=== PATIENT | female | born 1980 | race Caucasian/White ===

== ENCOUNTER 2018-02-25 16:10 | Day surgery (SDC) | payer BC ==
[~2018-02-25 16:10] MED LIST: Ketorolac Tromethamine 30 MG/ML VIAL ONE; Lidocaine 1% PF 5 ML VIAL ONE; Ondansetron HCl/PF 4 MG/2 ML Vial ONE; PROPOFOL 200 MG/20 ML VIAL ONE; Succinylcholine Chloride 20 MG/ML 10 ml SYRINGE FS ONE
[2018-02-25] MEDS ORDERED: Fentanyl 100 MCG/2 ML VIAL ONE (17:14)
[2018-02-25] MEDS ORDERED: Midazolam HCl 2 mg/2 ml Vial ONE (17:14)
[2018-02-25] MEDS ORDERED: Bupivacaine/Epinephrine 0.25% 30 ML VIAL ONE (17:19)
--- NOTE | 2018-02-25 18:37 | HP ---
DATE OF SERVICE: 02/25/2018 CHIEF COMPLAINT: Right lower quadrant pain. HISTORY OF PRESENT ILLNESS: This is a 38-year-old female, who presents with pain in the right lower quadrant that started mid day. She had periumbilical bloated type pain before then. She denies hist ory of chronic abdominal pain. No history of Crohn's, this is associated with nausea, no vomiting, n o fever or chills. Seen at the [facility] Room where she was found to have acute appendicitis . PAST MEDICAL HISTORY: Migraines. PAST SURGICAL HISTORY: She denies. MEDICINES: None. ALLERGIES: No known drug allergies. SOCIAL HISTORY: No smoking, alcohol or other drugs. REVIEW OF SYSTEMS: Ten system review of systems otherwise negative unless described above. PHYSICAL EXAMINATION: VITAL SIGNS: Blood pressure 127/77, pulse 87, respirations 16, temperature 98.2. HEENT: Sclerae are anicteric. Oropharynx clear. NECK: No lymphadenopathy. CHEST: Clear. HEART: Regular rate and rhythm. ABDOMEN: Soft, tender right lower quadrant, localized guarding, no rebound, no abdominal hernias. EXTREMITIES: No ischemia or edema to extremities. LABORATORY AND X-RAY FINDINGS: CT scan reveals acute appendicitis. White count is 10, platelets are 253, hemoglobin 14, sodium 138, potassium 3.5, creatinine is 0.6. ASSESSMENT: Acute appendicitis. PLAN: Laparoscopic appendectomy. Risks, benefits, alternatives discussed. She gives consent. We w ill do this today.
[2018-02-25] MEDS ORDERED: HYDROcodone/Acetaminophen 5/325 mg Tablet ONE (19:14)
--- NOTE | 2018-02-25 20:27 | OP ---
DATE OF PROCEDURE: 02/25/2018 PREOPERATIVE DIAGNOSIS: Acute appendicitis. POSTOPERATIVE DIAGNOSIS: Acute appendicitis. PROCEDURE: Laparoscopic appendectomy. SURGEON: Elvis Hager M.D. ANESTHESIA: General. ESTIMATED BLOOD LOSS: Minimal. COMPLICATIONS: None. SPECIMEN: Appendix. FINDINGS: Appendicitis. TECHNIQUE: The patient was taken to the operating room and placed in supine on the table after gener al anesthetic was obtained. A Schafer was placed. The abdomen was shaved, prepped, and draped in ster ile fashion. Curved incision made below the umbilicus. Cautery was used to dissect down to and scor e the fascia. Abdominal cavity was entered bluntly using a Rhina clamp. Holding stitch of PDS was p laced on each side of the fascia. Garzon trocar was placed. High-flow pneumoperitoneum was obtained . An upper midline 5 mm port and 2 right upper quadrant 5 mm port was placed under direct visualizat ion. Cecum was rolled over to reveal acute appendicitis. A small window was made at the base of the appendix and mesoappendix. Laparoscopic stapler fired across the base of the appendix. A reload fi red across the mesoappendix. Appendix placed in the endocatch bag and brought out through the Sher . There was no bleeding on the staple line. The right lower quadrant and pelvis was irrigated using sterile solution. All port sites were infiltrated using local anesthesia. All ports were removed u nder camera visualization. Pneumoperitoneum was let down. PDS was used to close the fascial defect above the umbilicus. All incisions were irrigated and closed using 4-0 Monocryl and Dermabond. The patient was en route to recovery in stable condition. All sponge counts, needle counts, lap counts w ere correct.
== END 2018-02-25 20:05 | disposition home or self-care (01) ==
LOC: SDC 16:10
PROVIDERS: ATTEND Surgery
PROC: 0DTJ4ZZ Resection of Appendix, Percutaneous Endoscopic Approach (ICD-10-PCS; principal; 2018-02-25)
DX: K35.80 Unspecified acute appendicitis (principal); G43.909 Migraine, unspecified, not intractable, without status migrainosus
CPT/HCPCS: 88304; J2250; J3010